=== PATIENT | female | born 1960 | race Caucasian/White ===

== ENCOUNTER 2016-06-02 13:36 | Emergency (ER) | payer OTHER ==
[2016-06-02] MEDS ORDERED: GI COCKTAIL 50ML BTL(HYOSCYAMINE/MAALOX/LIDOCAINE VISCOUS)(1:3:1) As Ordered ONE (16:34)
[2016-06-02 16:39] LABS: BASO % 0.5 % (0.0-1.0); EOS # 0.1 K/mm3 (0.0-0.50); EOS % 1.2 % (0.0-3.0); LARGE UNSTAINED CELL # 0.2 K/mm3 (0.0-0.4); LARGE UNSTAINED CELL % 3.3 % (0.0-4.0); LYMPH % 28.9 % (24.0-44.0); MEAN CORPUSCULAR HEMOGLOBIN 30.6 pg (27.0-33.0); MEAN CORPUSCULAR HGB CONC 32.6 g/dl (32.0-36.5); MEAN CORPUSCULAR VOLUME 93.7 fl (80.0-96.0); MONO # 0.4 K/mm3 (0.0-0.8); MONO % 6.4 % (0.0-5.0); NEUTROPHILS # 4.1 K/mm3 (1.8-7.7); NEUTROPHILS % 59.7 % (36.0-66.0); PLATELET COUNT, AUTOMATED 259 k/mm3 (150-450); RED CELL DISTRIBUTION WIDTH 12.5 % (11.5-14.5); WHITE BLOOD COUNT 6.8 K/mm3 (4.0-10.0)
[2016-06-02 16:55] LABS: ANION GAP 8 MEQ/L (8-16); BLOOD UREA NITROGEN 10 MG/DL (7-18); CALCIUM LEVEL 9.1 MG/DL (8.5-10.1); CARBON DIOXIDE LEVEL 29 MEQ/L (21-32); CHLORIDE LEVEL 106 MEQ/L (98-107); CREATININE FOR GFR 0.81 MG/DL (0.55-1.02); GLOMERULAR FILTRATION RATE > 60.0 (>51); GLUCOSE, FASTING 106 MG/DL (70-105); POTASSIUM SERUM 4.1 MEQ/L (3.5-5.1); SODIUM LEVEL 143 MEQ/L (136-145)
--- NOTE | 2016-06-02 17:04 | REP ---
Chest x-ray: Two views: History: Possible inhalation of food particle. Comparison study: 08/21/2014. Findings: The lungs are hyperinflated and free of infiltrate. The pleural angles are sharp. The heart size is normal. Pulmonary vasculature is not increased. No significant bony abnormality is seen. Impression: Hyperinflation consistent with COPD, otherwise negative chest x-ray. No evidence of infiltrate or atelectasis. Signed by Jules Colorado MD 06/03/2016 09:29 A
[2016-06-02] MEDS ORDERED: ISOVUE-370 76% 100ML VIAL (Q9967) As Ordered ONE (17:15)
--- NOTE | 2016-06-02 18:54 | REP ---
CT NECK WITH CONTRAST: CT neck is performed with intravenous contrast, with the intravenous administration of 100 mL of Isovue-370. Sagittal and coronal reconstructions images are performed. I see no evidence of radiopaque foreign body along the course of the proximal esophagus, nor in the visualized trachea. There does appear to be a small amount of foreign material and or secretions in the region of the valleculae. There appears to be a small sialolith in the right posterior oropharyngeal soft-tissue as seen on prior study of 04/20/2014. Globes are intact. Paranasal sinuses are clear. Carotid, submandibular and thyroid glands are unremarkable. I see no significant adenopathy. The visualized lung chavira are unremarkable. IMPRESSION: Small amount of secretions and or foreign material in the region of the valleculae. No other evidence of radiopaque foreign body along the course of the proximal esophagus or trachea. Signed by Zay De Jesus MD 06/02/2016 08:16 P
--- NOTE | 2016-06-02 18:54 | EDDOCDS ---
Nurse's Notes [facility] Name: Maggie Case Age: 56 yrs Sex: Female : 1960 Arrival Date: 06/02/2016 Time: 13:36 Bed I2 / M2 Private MD: Coty Little MD Diagnosis: Dysphagia Presentation: 06/02 13:57 Presenting complaint: Patient states: choked on a piece of tomato on Monday feels like [facility] the piece is still stuck in throat , able to keep food and fluids down. Adult Sepsis Screening: The patient does not have new or worsening altered mentation. Patient's respiratory rate is less than 22. Systolic blood pressure is greater than 100. Patient has a qSOFA score of 0- Negative Sepsis Screen. Suicide/Homicide risk assessment- the patient denies having any suicidal and/or homicidal ideations and does not present with any other emotional, behavioral or mental health complaints. 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 Transition of care: patient was not received from another setting of care. 13:57 Acuity: MERISSA Level 3 [facility] 13:57 Method Of Arrival: Walkin/Carried/Asstd [facility] Triage Assessment: 14:03 General: Appears in no apparent distress, Behavior is appropriate for age, pleasant. [facility] Pain: Denies pain. HIV screening NA for this visit Offered previously. Neurological: Level of Consciousness is awake, alert, Oriented to person, place, time. EENT: Reports feeling of FB in throat. Respiratory: Airway is patent Respiratory effort is even, unlabored. Derm: Skin is pink, warm & dry. Historical: - Allergies: No known drug Allergies; - Home Meds: 1. aspirin 81 mg Oral tab 1 tab once daily (Last dose: 06/02/2016 10:00) 2. carvedilol 3.125 mg oral tab 1 tab every 12 hours (Last dose: 06/02/2016 10:00) 3. atorvastatin 40 mg oral tab 1 tab nightly (Last dose: 06/01/2016) - PMHx: Hypercholesterolemia; Myocardial infarction; - PSHx: Stents, Coronary; left hip surgery; foot surgery; - Social history: Smoking status: Patient states former smoker of tobacco. No barriers to communication noted, The patient speaks fluent Nepali. - Family history: Not pertinent. - : The pt / caregiver states he / she is not on anticoagulants. Home medication list is obtained from the patient. - Exposure Risk Screening:: None identified. Screenin:21 Screening information is obtained from the patient. Fall risk: No risks identified. kr3 Assistance ADL's: requires no assistance with activities of daily living. Abuse/DV Screen: The patient / caregiver reports he/she is: not in a situation that causes fear, pain or injury. Nutritional screening: No deficits noted. Advance Directives: Currently, there is no health care proxy. home support is adequate. Assessment: 16:33 General: Appears in no apparent distress, comfortable, Behavior is cooperative. Pain: kr3 Denies pain. Neurological: Level of Consciousness is awake, alert. Respiratory: Respiratory effort is even, unlabored. Derm: Skin is normal. 17:21 Reassessment: Patient appears in no apparent distress at this time. reports numbness in kr3 throat is decreasing and can again feel irritation. 18:13 General: Appears in no apparent distress, returned from CT. tolerated well. waiting for rs3 test results. . Vital Signs: 13:39 BP 162 / 86; Pulse 95; Resp 18 S; Temp 97.1(O); Pulse Ox 100% on R/A; Weight 54.43 kg gr2 (R); Height 5 ft. 7 in. (170.18 cm) (R); Pain 2/10; 18:48 BP 152 / 85; Pulse 81; Resp 18; Temp 96.9(O); Pulse Ox 97% on R/A; Pain 0/10; nb2 13:39 Body Mass Index 18.79 (54.43 kg, 170.18 cm) gr2 Vitals: 13:39 Log In Time: June 02, 2016 at 13:39. gr2 ED Course: 13:38 Patient visited by Erin Darden. gr2 13:38 Patient moved to Waiting gr2 13:39 Coty Little is Private Physician. gr2 13:41 Patient visited by Erin Darden. gr2 13:41 Patient moved to Pre RCE gr2 14:00 Triage Initiated kp 15:12 Patient moved to Triage 2 mdr 15:55 [facility] [place] [facility] Payment Agreement was scanned into [employer] and attached to record. lg 15:57 Lynn Rosenberg PA-C is PHCP. dt4 15:57 Lyudmila Bailey MD is Attending Physician. dt4 15:57 Patient visited by Lynn Rosenberg PA-C. dt4 16:16 Patient moved to I2 / M2 mdr 16:33 Basic Metabolic Profile Sent. kr3 16:33 CBC with Diff Sent. kr3 16:33 Inserted saline lock: 20 gauge in right antecubital area and blood collected. The kr3 patient tolerated the procedure well. 16:36 Patient visited by Isabella Miner RN. kr3 17:21 Patient visited by Isabella Miner RN. kr3 17:29 Chest, 2 View (pa\E\lat) Returned. EDMS 18:13 Patient visited by Kimberlyn Beltran RN. rs3 18:20 PHCP role handed off by Lynn Rosenberg PA-C ck7 18:20 Rual Quigley RPA-C is PHCP. ck7 18:44 Patient visited by Raul Quigley RPA-C. ck7 18:45 Valentino Gooden is Referral Physician. ck7 18:48 Patient visited by Franca Pickering. nb2 18:52 The patient / caregiver is instructed regarding the plan of care and ED course. Patient joce has correct armband on for positive identification. Placed in gown. Bed in low position. Call light in reach. Side rails up X 1. 18:52 Discontinued lock intact, bleeding controlled, pressure dressing applied, No kr3 redness/swelling at site. No procedures done that require assistance. Administered Medications: 16:36 Drug: GI Cocktail - (Alum-Mag Hydroxide-Simeth Suspension 225 mg-200 mg-25 mg/5 mL 30 kr3 ml, Lidocaine Liquid 2 % 10 ml, Hyoscyamine Liquid 10 ml) Route: PO; Order Results: Lab Order: CBC with Diff; SPEC'M 06/02/16 16:31 Test: WHITE BLOOD COUNT; Value: 6.8; Range: 4.0-10.0; Units: K/mm3; Status: F Test: RED BLOOD COUNT; Value: 5.21; Range: 4.00-5.40; Units: M/mm3; Status: F Test: HEMOGLOBIN; Value: 15.9; Range: 12.0-16.0; Units: g/dl; Status: F Test: HEMATOCRIT; Value: 48.8; Range: 36.0-47.0; Abnormal: Above high normal; Units: %; Status: F Test: MEAN CORPUSCULAR VOLUME; Value: 93.7; Range: 80.0-96.0; Units: fl; Status: F Test: MEAN CORPUSCULAR HEMOGLOBIN; Value: 30.6; Range: 27.0-33.0; Units: pg; Status: F Test: MEAN CORPUSCULAR HGB CONC; Value: 32.6; Range: 32.0-36.5; Units: g/dl; Status: F Test: RED CELL DISTRIBUTION WIDTH; Value: 12.5; Range: 11.5-14.5; Units: %; Status: F Test: PLATELET COUNT, AUTOMATED; Value: 259; Range: 150-450; Units: k/mm3; Status: F Test: NEUTROPHILS %; Value: 59.7; Range: 36.0-66.0; Units: %; Status: F Test: LYMPH %; Value: 28.9; Range: 24.0-44.0; Units: %; Status: F Test: MONO %; Value: 6.4; Range: 0.0-5.0; Abnormal: Above high normal; Units: %; Status: F Test: EOS %; Value: 1.2; Range: 0.0-3.0; Units: %; Status: F Test: BASO %; Value: 0.5; Range: 0.0-1.0; Units: %; Status: F Test: LARGE UNSTAINED CELL %; Value: 3.3; Range: 0.0-4.0; Units: %; Status: F Test: NEUTROPHILS #; Value: 4.1; Range: 1.8-7.7; Units: K/mm3; Status: F Test: LYMPH #; Value: 2.0; Range: 1.5-4.5; Units: K/mm3; Status: F Test: MONO #; Value: 0.4; Range: 0.0-0.8; Units: K/mm3; Status: F Test: EOS #; Value: 0.1; Range: 0.0-0.50; Units: K/mm3; Status: F Test: BASO #; Value: 0.0; Range: 0.0-0.2; Units: K/mm3; Status: F Test: LARGE UNSTAINED CELL #; Value: 0.2; Range: 0.0-0.4; Units: K/mm3; Status: F Lab Order: Basic Metabolic Profile; SPEC'M 06/02/16 16:31 Test: GLUCOSE, FASTING; Value: 106; Range: 70-105; Abnormal: Above high normal; Units: MG/DL; Status: F Test: BLOOD UREA NITROGEN; Value: 10; Range: 7-18; Units: MG/DL; Status: F Test: CREATININE FOR GFR; Value: 0.81; Range: 0.55-1.02; Units: MG/DL; Status: F Test: GLOMERULAR FILTRATION RATE; Value: > 60.0; Range: >51; Status: F Test: SODIUM LEVEL; Value: 143; Range: 136-145; Units: MEQ/L; Status: F Test: POTASSIUM SERUM; Value: 4.1; Range: 3.5-5.1; Units: MEQ/L; Status: F Test: CHLORIDE LEVEL; Value: 106; Range: 98-107; Units: MEQ/L; Status: F Test: CARBON DIOXIDE LEVEL; Value: 29; Range: 21-32; Units: MEQ/L; Status: F Test: ANION GAP; Value: 8; Range: 8-16; Units: MEQ/L; Status: F Test: CALCIUM LEVEL; Value: 9.1; Range: 8.5-10.1; Units: MG/DL; Status: F Test Note: ; Units are mL/min/1.73 m2 Chronic Kidney Disease Staging per NKF: Stage I & II GFR >=60 Normal to Mildly Decreased Stage III GFR 30-59 Moderately Decreased Stage IV GFR 15-29 Severely Decreased Stage V GFR <15 Very Little GFR Left ESRD GFR <15 on GEOPHYSICAL PROSPECTING SURVEYOR Radiology Order: Chest, 2 View (pa\E\lat) Test: Chest, 2 View (pa\E\lat) REASON FOR EXAMINATION: may have inhaled food particle; Chest x-ray: Two views:; ; History: Possible inhalation of food particle.; ; Comparison study: 08/21/2014.; ; Findings: The lungs are hyperinflated and free of infiltrate. The pleural; angles are sharp. The heart size is normal. Pulmonary vasculature is not; increased. No significant bony abnormality is seen.; ; Impression:; ; Hyperinflation consistent with COPD, otherwise negative chest x-ray. No evidence; of infiltrate or atelectasis.; ; ; ; ; Unreviewed; Outcome: 18:45 Discharge ordered by Provider. ck7 18:51 Discharge Assessment: patient administered narcotics - no. The following High Risk kr3 Discharge criteria are identified: None. Discharged to home ambulatory. Condition: stable. Discharge instructions given to patient, Instructed on discharge instructions, follow up and referral plans. Demonstrated understanding of instructions, Pt was receptive of discharge instructions/ teaching. CT Study completed. Property sent home with patient. 18:52 Patient left the ED. kr3 Signatures: Dispatcher [employer] EDMS Noy Stroud, RN RN Cj Randolph, Reg Reg lg Isabella Miner RN RN kr3 Kimberlyn Beltran RN RN rs3 Raul Quigley, RPA-C RPA-Cck7 Erin Darden gr2 Lynn Rosenberg, PA-C PA-C dt4 Rubén Galloway, [employer] Franca Donald nb2 MTDD
--- NOTE | 2016-06-02 18:54 | EDDOCDS ---
Physician Documentation [facility] Name: Maggie Case Age: 56 yrs Sex: Female : 1960 Arrival Date: 06/02/2016 Time: 13:36 Bed I2 / M2 Private MD: Coty Little MD Disposition: 06/02/16 18:45 Discharged to Home/Self Care. Impression: Dysphagia. - Condition is Stable. - Discharge Instructions: Dysphagia. - Medication Reconciliation, Local Pharmacy Hours form. - Follow up: Valentino Gooden; When: 1 week; Reason: Recheck today's complaints, Continuance of care. - Problem is new. - Symptoms have improved. - Notes: IF SYMPTOMS CONTINUE, PLEASE FOLLOW UP WITH DR GOODEN IN HIS OFFICE, CALL THE NUMBER THAT HAS BEEN PROVIDED TO SCHEDULE AN APPOINMENT Historical: - Allergies: No known drug Allergies; - Home Meds: 1. aspirin 81 mg Oral tab 1 tab once daily (Last dose: 06/02/2016 10:00) 2. carvedilol 3.125 mg oral tab 1 tab every 12 hours (Last dose: 06/02/2016 10:00) 3. atorvastatin 40 mg oral tab 1 tab nightly (Last dose: 06/01/2016) - PMHx: Hypercholesterolemia; Myocardial infarction; - PSHx: Stents, Coronary; left hip surgery; foot surgery; - Social history: Smoking status: Patient states former smoker of tobacco. No barriers to communication noted, The patient speaks fluent Japanese. - Family history: Not pertinent. - : The pt / caregiver states he / she is not on anticoagulants. Home medication list is obtained from the patient. - Exposure Risk Screening:: None identified. Vital Signs: 06/02 13:39 BP 162 / 86; Pulse 95; Resp 18 S; Temp 97.1(O); Pulse Ox 100% on R/A; Weight 54.43 kg / gr2 120 lbs (R); Height 5 ft. 7 in. (170.18 cm) (R); Pain 2/10; 18:48 BP 152 / 85; Pulse 81; Resp 18; Temp 96.9(O); Pulse Ox 97% on R/A; Pain 0/10; nb2 13:39 Body Mass Index 18.79 (54.43 kg, 170.18 cm) gr2 MDM: 15:55 [facility] Payment Agreement was scanned into [employer] in [place] and attached to record. lg 16:01 Financial registration complete. lg 16:14 IV Saline Lock ordered. dt4 16:15 Chest, 2 View (pa\E\lat) Ordered. EDMS 16:15 CT Neck With Contrast Ordered. EDMS 16:15 CBC with Diff Ordered. EDMS 16:15 Basic Metabolic Profile Ordered. EDMS 16:29 GI Cocktail - (Alum-Mag Hydroxide-Simeth 30 ml, Lidocaine 10 ml, Hyoscyamine 10 ml) PO dt4 once; Pre-mixed 50mL unit dose ordered. 18:20 CBC with Diff Reviewed. ck7 18:20 Basic Metabolic Profile Reviewed. ck7 18:20 Chest, 2 View (pa\E\lat) Reviewed. ck7 Administered Medications: 16:36 Drug: GI Cocktail - (Alum-Mag Hydroxide-Simeth Suspension 225 mg-200 mg-25 mg/5 mL 30 kr3 ml, Lidocaine Liquid 2 % 10 ml, Hyoscyamine Liquid 10 ml) Route: PO; Signatures: Dispatcher [employer] EDMS Noy Stroud, RN RN Cj Randolph, Reg Reg lg Isabella Miner,RN RN kr3 Raul Quigley, RPA-C RPA-Cck7 Lynn Rosenberg PA-C PA-C dt4 The chart was reviewed and I authenticate all verbal orders and agree with the evaluation and treatment provided.Attachments: 15:55 [facility] Payment Agreement lg MTDD
--- NOTE | 2016-06-04 19:53 | EDDOCDS ---
Physician Documentation [facility] Name: Maggie Case Age: 56 yrs Sex: Female : 1960 Arrival Date: 06/02/2016 Time: 13:36 Bed I2 / M2 Private MD: Coty Little MD Disposition: 06/02/16 18:45 Discharged to Home/Self Care. Impression: Dysphagia. - Condition is Stable. - Discharge Instructions: Dysphagia. - Medication Reconciliation, Local Pharmacy Hours form. - Follow up: Valentino Gooden; When: 1 week; Reason: Recheck today's complaints, Continuance of care. - Problem is new. - Symptoms have improved. - Notes: IF SYMPTOMS CONTINUE, PLEASE FOLLOW UP WITH DR GOODEN IN HIS OFFICE, CALL THE NUMBER THAT HAS BEEN PROVIDED TO SCHEDULE AN APPOINMENT Historical: - Allergies: No known drug Allergies; - Home Meds: 1. aspirin 81 mg Oral tab 1 tab once daily (Last dose: 06/02/2016 10:00) 2. carvedilol 3.125 mg oral tab 1 tab every 12 hours (Last dose: 06/02/2016 10:00) 3. atorvastatin 40 mg oral tab 1 tab nightly (Last dose: 06/01/2016) - PMHx: Hypercholesterolemia; Myocardial infarction; - PSHx: Stents, Coronary; left hip surgery; foot surgery; - Social history: Smoking status: Patient states former smoker of tobacco. No barriers to communication noted, The patient speaks fluent French. - Family history: Not pertinent. - : The pt / caregiver states he / she is not on anticoagulants. Home medication list is obtained from the patient. - Exposure Risk Screening:: None identified. Vital Signs: 06/02 13:39 BP 162 / 86; Pulse 95; Resp 18 S; Temp 97.1(O); Pulse Ox 100% on R/A; Weight 54.43 kg / gr2 120 lbs (R); Height 5 ft. 7 in. (170.18 cm) (R); Pain 2/10; 18:48 BP 152 / 85; Pulse 81; Resp 18; Temp 96.9(O); Pulse Ox 97% on R/A; Pain 0/10; nb2 13:39 Body Mass Index 18.79 (54.43 kg, 170.18 cm) gr2 MDM: 15:55 [facility] [place] Payment Agreement was scanned into [employer] and attached to record. lg 16:01 Financial registration complete. lg 16:14 IV Saline Lock ordered. dt4 16:15 Chest, 2 View (pa\E\lat) Ordered. EDMS 16:15 CT Neck With Contrast Ordered. EDMS 16:15 CBC with Diff Ordered. EDMS 16:15 Basic Metabolic Profile Ordered. EDMS 16:29 GI Cocktail - (Alum-Mag Hydroxide-Simeth 30 ml, Lidocaine 10 ml, Hyoscyamine 10 ml) PO dt4 once; Pre-mixed 50mL unit dose ordered. 18:20 CBC with Diff Reviewed. ck7 18:20 Basic Metabolic Profile Reviewed. ck7 18:20 Chest, 2 View (pa\E\lat) Reviewed. ck7 06/03 09:55 T-Sheet-- Draft Copy was scanned into [employer] and attached to record. gb 09:55 Radiology Report was scanned into [employer] and attached to record. gb Administered Medications: 06/02 16:36 Drug: GI Cocktail - (Alum-Mag Hydroxide-Simeth Suspension 225 mg-200 mg-25 mg/5 mL 30 kr3 ml, Lidocaine Liquid 2 % 10 ml, Hyoscyamine Liquid 10 ml) Route: PO; Signatures: Dispatcher [employer] EDMS Noy Stroud, RN RN Tammy Celis, Reg Reg gb Cj Kim, Reg Reg lg Isabella Miner,RN RN kr3 Raul Quigley, RPA-C RPA-Cck7 Lynn Rosenberg, PA-C PA-C dt4 The chart was reviewed and I authenticate all verbal orders and agree with the evaluation and treatment provided.Attachments: 15:55 [facility] Payment Agreement lg 06/03 09:55 T-Sheet-- Draft Copy gb Chart Complete MTDD
--- NOTE | 2016-06-04 19:53 | EDDOCDS ---
Physician Documentation [facility] Name: Maggie Case Age: 56 yrs Sex: Female : 1960 Arrival Date: 06/02/2016 Time: 13:36 Bed I2 / M2 Private MD: Coty Little MD Disposition: 06/02/16 18:45 Discharged to Home/Self Care. Impression: Dysphagia. - Condition is Stable. - Discharge Instructions: Dysphagia. - Medication Reconciliation, Local Pharmacy Hours form. - Follow up: Valentino Gooden; When: 1 week; Reason: Recheck today's complaints, Continuance of care. - Problem is new. - Symptoms have improved. - Notes: IF SYMPTOMS CONTINUE, PLEASE FOLLOW UP WITH DR GOODEN IN HIS OFFICE, CALL THE NUMBER THAT HAS BEEN PROVIDED TO SCHEDULE AN APPOINMENT Historical: - Allergies: No known drug Allergies; - Home Meds: 1. aspirin 81 mg Oral tab 1 tab once daily (Last dose: 06/02/2016 10:00) 2. carvedilol 3.125 mg oral tab 1 tab every 12 hours (Last dose: 06/02/2016 10:00) 3. atorvastatin 40 mg oral tab 1 tab nightly (Last dose: 06/01/2016) - PMHx: Hypercholesterolemia; Myocardial infarction; - PSHx: Stents, Coronary; left hip surgery; foot surgery; - Social history: Smoking status: Patient states former smoker of tobacco. No barriers to communication noted, The patient speaks fluent Bulgarian. - Family history: Not pertinent. - : The pt / caregiver states he / she is not on anticoagulants. Home medication list is obtained from the patient. - Exposure Risk Screening:: None identified. Vital Signs: 06/02 13:39 BP 162 / 86; Pulse 95; Resp 18 S; Temp 97.1(O); Pulse Ox 100% on R/A; Weight 54.43 kg / gr2 120 lbs (R); Height 5 ft. 7 in. (170.18 cm) (R); Pain 2/10; 18:48 BP 152 / 85; Pulse 81; Resp 18; Temp 96.9(O); Pulse Ox 97% on R/A; Pain 0/10; nb2 13:39 Body Mass Index 18.79 (54.43 kg, 170.18 cm) gr2 MDM: 15:55 [facility] Payment Agreement was scanned into [employer] and attached to record. lg 16:01 Financial registration complete. lg 16:14 IV Saline Lock ordered. dt4 16:15 Chest, 2 View (pa\E\lat) Ordered. EDMS 16:15 CT Neck With Contrast Ordered. EDMS 16:15 CBC with Diff Ordered. EDMS 16:15 Basic Metabolic Profile Ordered. EDMS 16:29 GI Cocktail - (Alum-Mag Hydroxide-Simeth 30 ml, Lidocaine 10 ml, Hyoscyamine 10 ml) PO dt4 once; Pre-mixed 50mL unit dose ordered. 18:20 CBC with Diff Reviewed. ck7 18:20 Basic Metabolic Profile Reviewed. ck7 18:20 Chest, 2 View (pa\E\lat) Reviewed. ck7 06/03 09:55 T-Sheet-- Draft Copy was scanned into [employer] and attached to record. gb 09:55 Radiology Report was scanned into [employer] and attached to record. gb Administered Medications: 06/02 16:36 Drug: GI Cocktail - (Alum-Mag Hydroxide-Simeth Suspension 225 mg-200 mg-25 mg/5 mL 30 kr3 ml, Lidocaine Liquid 2 % 10 ml, Hyoscyamine Liquid 10 ml) Route: PO; Signatures: Dispatcher [employer] EDMS Noy Stroud, RN RN Tammy Celis, Reg Reg gb Cj Kim, Reg Reg lg Isabella Miner,RN RN kr3 Raul Quigley, RPA-C RPA-Cck7 Lynn Rosenberg, PA-C PA-C dt4 The chart was reviewed and I authenticate all verbal orders and agree with the evaluation and treatment provided.Attachments: 15:55 [facility] Payment Agreement lg 06/03 09:55 T-Sheet-- Draft Copy gb Chart Complete MTDD
--- NOTE | 2016-06-04 19:54 | EDDOCDS ---
Nurse's Notes [facility] Name: Maggie Case Age: 56 yrs Sex: Female : 1960 Arrival Date: 06/02/2016 Time: 13:36 Bed I2 / M2 Private MD: Coty Little MD Diagnosis: Dysphagia Presentation: 06/02 13:57 Presenting complaint: Patient states: choked on a piece of tomato on Monday feels like [facility] the piece is still stuck in throat , able to keep food and fluids down. Adult Sepsis Screening: The patient does not have new or worsening altered mentation. Patient's respiratory rate is less than 22. Systolic blood pressure is greater than 100. Patient has a qSOFA score of 0- Negative Sepsis Screen. Suicide/Homicide risk assessment- the patient denies having any suicidal and/or homicidal ideations and does not present with any other emotional, behavioral or mental health complaints. Status: Patient is not a financial services professional or dependent. Transition of care: patient was not received from another setting of care. 13:57 Acuity: MERISSA Level 3 [facility] 13:57 Method Of Arrival: Walkin/Carried/Asstd [facility] Triage Assessment: 14:03 General: Appears in no apparent distress, Behavior is appropriate for age, pleasant. [facility] Pain: Denies pain. HIV screening NA for this visit Offered previously. Neurological: Level of Consciousness is awake, alert, Oriented to person, place, time. EENT: Reports feeling of FB in throat. Respiratory: Airway is patent Respiratory effort is even, unlabored. Derm: Skin is pink, warm & dry. Historical: - Allergies: No known drug Allergies; - Home Meds: 1. aspirin 81 mg Oral tab 1 tab once daily (Last dose: 06/02/2016 10:00) 2. carvedilol 3.125 mg oral tab 1 tab every 12 hours (Last dose: 06/02/2016 10:00) 3. atorvastatin 40 mg oral tab 1 tab nightly (Last dose: 06/01/2016) - PMHx: Hypercholesterolemia; Myocardial infarction; - PSHx: Stents, Coronary; left hip surgery; foot surgery; - Social history: Smoking status: Patient states former smoker of tobacco. No barriers to communication noted, The patient speaks fluent Welsh. - Family history: Not pertinent. - : The pt / caregiver states he / she is not on anticoagulants. Home medication list is obtained from the patient. - Exposure Risk Screening:: None identified. Screenin:21 Screening information is obtained from the patient. Fall risk: No risks identified. kr3 Assistance ADL's: requires no assistance with activities of daily living. Abuse/DV Screen: The patient / caregiver reports he/she is: not in a situation that causes fear, pain or injury. Nutritional screening: No deficits noted. Advance Directives: Currently, there is no health care proxy. home support is adequate. Assessment: 16:33 General: Appears in no apparent distress, comfortable, Behavior is cooperative. Pain: kr3 Denies pain. Neurological: Level of Consciousness is awake, alert. Respiratory: Respiratory effort is even, unlabored. Derm: Skin is normal. 17:21 Reassessment: Patient appears in no apparent distress at this time. reports numbness in kr3 throat is decreasing and can again feel irritation. 18:13 General: Appears in no apparent distress, returned from CT. tolerated well. waiting for rs3 test results. . Vital Signs: 13:39 BP 162 / 86; Pulse 95; Resp 18 S; Temp 97.1(O); Pulse Ox 100% on R/A; Weight 54.43 kg gr2 (R); Height 5 ft. 7 in. (170.18 cm) (R); Pain 2/10; 18:48 BP 152 / 85; Pulse 81; Resp 18; Temp 96.9(O); Pulse Ox 97% on R/A; Pain 0/10; nb2 13:39 Body Mass Index 18.79 (54.43 kg, 170.18 cm) gr2 Vitals: 13:39 Log In Time: June 02, 2016 at 13:39. gr2 ED Course: 13:38 Patient visited by Erin Darden. gr2 13:38 Patient moved to Waiting gr2 13:39 Coty Little is Private Physician. gr2 13:41 Patient visited by Erin Darden. gr2 13:41 Patient moved to Pre RCE gr2 14:00 Triage Initiated kp 15:12 Patient moved to Triage 2 mdr 15:55 [facility] Payment Agreement was scanned into [employer] and attached to record. lg 15:57 Lynn Rosenberg PA-C is PHCP. dt4 15:57 Lyudmila Bailey MD is Attending Physician. dt4 15:57 Patient visited by Lynn Rosenberg PA-C. dt4 16:16 Patient moved to I2 / M2 mdr 16:33 Basic Metabolic Profile Sent. kr3 16:33 CBC with Diff Sent. kr3 16:33 Inserted saline lock: 20 gauge in right antecubital area and blood collected. The kr3 patient tolerated the procedure well. 16:36 Patient visited by Isabella Miner RN. kr3 17:21 Patient visited by Isabella Miner,JORDI. kr3 17:29 Chest, 2 View (pa\E\lat) Returned. EDMS 18:13 Patient visited by Kimberlyn Beltran RN. rs3 18:20 PHCP role handed off by Lynn Rosenberg PA-C ck7 18:20 Raul Quigley RPA-C is PHCP. ck7 18:44 Patient visited by Raul Quigley RPA-C. ck7 18:45 Valentino Gooden is Referral Physician. ck7 18:48 Patient visited by Franca Pickering. nb2 18:52 The patient / caregiver is instructed regarding the plan of care and ED course. Patient joce has correct armband on for positive identification. Placed in gown. Bed in low position. Call light in reach. Side rails up X 1. 18:52 Discontinued lock intact, bleeding controlled, pressure dressing applied, No kr3 redness/swelling at site. No procedures done that require assistance. 19:17 CT Neck With Contrast Returned. EDMS 06/03 09:55 T-Sheet-- Draft Copy was scanned into [employer] and attached to record. gb 09:55 Radiology Report was scanned into [employer] and attached to record. gb 10:14 Chest, 2 View (pa\E\lat) Returned. EDMS Administered Medications: 06/02 16:36 Drug: GI Cocktail - (Alum-Mag Hydroxide-Simeth Suspension 225 mg-200 mg-25 mg/5 mL 30 kr3 ml, Lidocaine Liquid 2 % 10 ml, Hyoscyamine Liquid 10 ml) Route: PO; Order Results: Lab Order: CBC with Diff; SPEC'M 06/02/16 16:31 Test: WHITE BLOOD COUNT; Value: 6.8; Range: 4.0-10.0; Units: K/mm3; Status: F Test: RED BLOOD COUNT; Value: 5.21; Range: 4.00-5.40; Units: M/mm3; Status: F Test: HEMOGLOBIN; Value: 15.9; Range: 12.0-16.0; Units: g/dl; Status: F Test: HEMATOCRIT; Value: 48.8; Range: 36.0-47.0; Abnormal: Above high normal; Units: %; Status: F Test: MEAN CORPUSCULAR VOLUME; Value: 93.7; Range: 80.0-96.0; Units: fl; Status: F Test: MEAN CORPUSCULAR HEMOGLOBIN; Value: 30.6; Range: 27.0-33.0; Units: pg; Status: F Test: MEAN CORPUSCULAR HGB CONC; Value: 32.6; Range: 32.0-36.5; Units: g/dl; Status: F Test: RED CELL DISTRIBUTION WIDTH; Value: 12.5; Range: 11.5-14.5; Units: %; Status: F Test: PLATELET COUNT, AUTOMATED; Value: 259; Range: 150-450; Units: k/mm3; Status: F Test: NEUTROPHILS %; Value: 59.7; Range: 36.0-66.0; Units: %; Status: F Test: LYMPH %; Value: 28.9; Range: 24.0-44.0; Units: %; Status: F Test: MONO %; Value: 6.4; Range: 0.0-5.0; Abnormal: Above high normal; Units: %; Status: F Test: EOS %; Value: 1.2; Range: 0.0-3.0; Units: %; Status: F Test: BASO %; Value: 0.5; Range: 0.0-1.0; Units: %; Status: F Test: LARGE UNSTAINED CELL %; Value: 3.3; Range: 0.0-4.0; Units: %; Status: F Test: NEUTROPHILS #; Value: 4.1; Range: 1.8-7.7; Units: K/mm3; Status: F Test: LYMPH #; Value: 2.0; Range: 1.5-4.5; Units: K/mm3; Status: F Test: MONO #; Value: 0.4; Range: 0.0-0.8; Units: K/mm3; Status: F Test: EOS #; Value: 0.1; Range: 0.0-0.50; Units: K/mm3; Status: F Test: BASO #; Value: 0.0; Range: 0.0-0.2; Units: K/mm3; Status: F Test: LARGE UNSTAINED CELL #; Value: 0.2; Range: 0.0-0.4; Units: K/mm3; Status: F Lab Order: Basic Metabolic Profile; SPECM 06/02/16 16:31 Test: GLUCOSE, FASTING; Value: 106; Range: 70-105; Abnormal: Above high normal; Units: MG/DL; Status: F Test: BLOOD UREA NITROGEN; Value: 10; Range: 7-18; Units: MG/DL; Status: F Test: CREATININE FOR GFR; Value: 0.81; Range: 0.55-1.02; Units: MG/DL; Status: F Test: GLOMERULAR FILTRATION RATE; Value: > 60.0; Range: >51; Status: F Test: SODIUM LEVEL; Value: 143; Range: 136-145; Units: MEQ/L; Status: F Test: POTASSIUM SERUM; Value: 4.1; Range: 3.5-5.1; Units: MEQ/L; Status: F Test: CHLORIDE LEVEL; Value: 106; Range: 98-107; Units: MEQ/L; Status: F Test: CARBON DIOXIDE LEVEL; Value: 29; Range: 21-32; Units: MEQ/L; Status: F Test: ANION GAP; Value: 8; Range: 8-16; Units: MEQ/L; Status: F Test: CALCIUM LEVEL; Value: 9.1; Range: 8.5-10.1; Units: MG/DL; Status: F Test Note: ; Units are mL/min/1.73 m2 Chronic Kidney Disease Staging per NKF: Stage I & II GFR >=60 Normal to Mildly Decreased Stage III GFR 30-59 Moderately Decreased Stage IV GFR 15-29 Severely Decreased Stage V GFR <15 Very Little GFR Left ESRD GFR <15 on STITCHER HAND Radiology Order: CT Neck With Contrast Test: CT Neck With Contrast REASON FOR EXAMINATION: suspected food stuck in throat; CT NECK WITH CONTRAST:; ; CT neck is performed with intravenous contrast, with the intravenous; administration of 100 mL of Isovue-[id number]. Sagittal and coronal reconstructions; images are performed.; ; I see no evidence of radiopaque foreign body along the course of the proximal; esophagus, nor in the visualized trachea. There does appear to be a small amount; of foreign material and or secretions in the region of the valleculae. There; appears to be a small sialolith in the right posterior oropharyngeal soft-tissue; as seen on prior study of 04/20/2014. Globes are intact. Paranasal sinuses are; clear. Carotid, submandibular and thyroid glands are unremarkable. I see no; significant adenopathy. The visualized lung chavira are unremarkable.; ; IMPRESSION:; ; Small amount of secretions and or foreign material in the region of the; valleculae. No other evidence of radiopaque foreign body along the course of the; proximal esophagus or trachea.; ; ; Signed by; Zay De Jesus MD 06/02/2016 08:16 P; Radiology Order: Chest, 2 View (pa\E\lat) Test: Chest, 2 View (pa\E\lat) REASON FOR EXAMINATION: may have inhaled food particle; Chest x-ray: Two views:; ; History: Possible inhalation of food particle.; ; Comparison study: 08/21/2014.; ; Findings: The lungs are hyperinflated and free of infiltrate. The pleural; angles are sharp. The heart size is normal. Pulmonary vasculature is not; increased. No significant bony abnormality is seen.; ; Impression:; ; Hyperinflation consistent with COPD, otherwise negative chest x-ray. No evidence; of infiltrate or atelectasis.; ; ; Signed by; Jules Colorado MD 06/03/2016 09:29 A; Outcome: 18:45 Discharge ordered by Provider. ck7 18:51 Discharge Assessment: patient administered narcotics - no. The following High Risk kr3 Discharge criteria are identified: None. Discharged to home ambulatory. Condition: stable. Discharge instructions given to patient, Instructed on discharge instructions, follow up and referral plans. Demonstrated understanding of instructions, Pt was receptive of discharge instructions/ teaching. CT Study completed. Property sent home with patient. 18:52 Patient left the ED. kr3 Signatures: Dispatcher [employer] EDMS Noy Stroud RN RN kpj Gissell, Tammy, Reg Reg gb Cj Kim, Reg Reg lg Isabella Miner,RN RN kr3 Ruby,Kimberlyn,RN RN rs3 Raul Quigley, RPA-C [id number] Erin Darden gr2 Lynn Rosenberg, PA-C PA-C dt4 Rubén Galloway, CHIEF DOG LICENSE INSPECTOR CHIEF DOG LICENSE INSPECTOR mdr Franca Pickering nb2 Chart Complete MTDD
== END 2016-06-02 18:52 | disposition home or self-care (01) ==
LOC: M ED 13:36
DX: R13.10 Dysphagia, unspecified (principal); E78.00 Pure hypercholesterolemia, unspecified; Z95.5 Presence of coronary angioplasty implant and graft; I25.2 Old myocardial infarction; Z79.899 Other long term (current) drug therapy; Z79.82 Long term (current) use of aspirin; Z87.891 Personal history of nicotine dependence
CPT/HCPCS: 36415; 70491; 71020; 80048; 85025; 99284; Q9967

== ENCOUNTER → 2016-08-01 | Outpatient (CLI) | payer OTHER ==
--- NOTE | 2016-08-01 19:12 | REP ---
Left thumb series: Four views: History: Pain. Findings: Four views of the left thumb demonstrate an area of soft tissue swelling dorsally over the IP joint of the thumb. There is some IP joint spurring. Oblique radiograph shows evidence of a tiny fragment of bone which may reflect a chip fracture of the distal phalanx at the IP joint. This is visible on both oblique radiographs. No displacement. Impression: IP joint spurring. Soft tissue swelling associated with probable chip fracture at the base of the distal phalanx of the thumb at the IP joint. Signed by Jules Colorado MD 08/01/2016 07:40 P
== END ==
LOC: M WUC 17:22
PROVIDERS: ATTEND Physician Assistant
DX: M79.645 Pain in left finger(s) (principal)